=== PATIENT | male | born 1955 | race Caucasian/White ===

== ENCOUNTER 2016-11-25 16:04 | Inpatient (IN) | payer OTHER ==
--- NOTE | 2016-11-25 17:20 | ED Physician Documentation ---
PD HPI MALE - Stated complaint Stated Complaint: MALE - Chief complaint Chief Complaint: General - History obtained from History obtained from: Patient - History of Present Illness Timing - onset: How many weeks ago (3) Timing - duration: Weeks (3) Timing - details: Gradual onset, Still present, Waxing and waning (he had been feeling dehydrated but drinking extra fluids. Has noted poor appetite but has had 15 lb weight gain in the past month. Having leg cramps both thighs often, when he has been standing out for awhile. 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 Has been off the ship for 3 days now and is still feeling generally ill and weak, cramping, and thirsty.) Associated symptoms: Urinary frequency. No: Dysuria, Hematuria, Scrotal swelling, Abdominal pain PD HPI MALE CONTRIB FACTORS: Not sexually active Similar symptoms before: Has not had sx before Recently seen: Not recently seen Review of Systems Constitutional: reports: Myalgias, Fatigue. denies: Fever, Chills, Weight Loss Nose: denies: Rhinorrhea / runny nose, Congestion Throat: denies: Sore throat Cardiac: denies: Chest pain / pressure Respiratory: denies: Cough GI: reports: Nausea. denies: Abdominal Pain, Vomiting, Diarrhea : reports: Frequency. denies: Dysuria, Discharge Skin: denies: Rash, Lesions Musculoskeletal: reports: Extremity pain Neurologic: reports: Generalized weakness. denies: Focal weakness, Numbness, Headache Psychiatric: denies: Insomnia Endocrine: reports: Weight gain. denies: Weight loss PD PAST MEDICAL HISTORY - Past Medical History Past Medical History: Yes Cardiovascular: Hypertension Respiratory: Asthma Other Past Medical History: chronic proteinuria - Past Surgical History Past Surgical History: No - Present Medications Home Medications: Ambulatory Orders Medication Instructions Recorded Confirmed Albuterol 1 puffs PO PRN 11/25/16 Esomeprazole Magnesium [Nexium] 10 mg PO DAILY 11/25/16 11/25/16 Fluticasone 44 Mcg [Flovent] 1 spray PO DAILY 11/25/16 11/25/16 - Allergies Allergies/Adverse Reactions: Allergies Allergy/AdvReac Type Severity Reaction Status Date / Time No Known Drug Allergies Allergy Verified 11/25/16 16:13 - Social History Does the pt smoke?: No Smoking Status: Never smoker Does the pt drink ETOH?: No Does the pt have substance abuse?: No - Family History Family history: reports: DM PD ED PE NORMAL - Vitals Vital signs reviewed: Yes - General General: Alert and oriented X 3, No acute distress, Well developed/nourished - HEENT HEENT: PERRL, Pharynx benign - Neck Neck: Supple, no meningeal sign, No adenopathy - Cardiac Cardiac: RRR, No murmur - Respiratory Respiratory: Clear bilaterally - Abdomen Abdomen: Normal bowel sounds, Soft, Non tender, Non distended - Male Male : Other (no hernias, testicular pain nor swelling, nor genital sores/ rash. ) - Rectal Rectal: Deferred - Back Back: No CVA TTP - Derm Derm: Normal color, Warm and dry, No rash - Extremities Extremities: Other (tenderness in muscles anterior thigh and upper shins. No calf tenderness nor swelling. Normal pulses, color and cap refill in feet. ) Results - Vitals Vitals: Vital Signs - 24 hr 11/25/16 11/25/16 11/25/16 16:09 18:22 19:15 Temperature 36.6 C 36.5 C Heart Rate 99 86 93 Respiratory 20 16 18 Rate Blood Pressure 143/91 H 142/92 H 148/90 H O2 Saturation 95 96 95 Oxygen O2 Source Room air - Labs Labs: Laboratory Tests 11/25/16 11/25/16 11/25/16 17:00 18:03 18:08 WBC 7.8 RBC 5.06 Hgb 14.2 Hct 42.9 MCV 84.8 MCH 28.0 MCHC 33.1 RDW 12.9 Plt Count 222 MPV 9.7 Neut # 5.0 Lymph # 1.9 [place] # 0.6 Eos # 0.2 Baso # 0.0 Absolute Nucleated RBC 0.00 Nucleated RBCs 0.0 Sodium Potassium Chloride Carbon Dioxide Anion Gap BUN Creatinine Estimated GFR (MDRD) Glucose Glycated Hemoglobin 12.4 H Estim Average Glucose 309 H Calcium Phosphorus Magnesium Total Bilirubin AST ALT Alkaline Phosphatase Total Creatine Kinase Total Protein Albumin Globulin Albumin/Globulin Ratio Lipase TSH Urine Color YELLOW Urine Clarity CLEAR Urine pH 6.5 Ur Specific [place] 1.015 Urine Protein 100 H Urine Glucose (UA) >=1000 H Urine Ketones 15 H Urine Occult Blood MODERATE H Urine Nitrite NEGATIVE Urine Bilirubin NEGATIVE Urine Urobilinogen 0.2 (NORMAL) Ur Leukocyte Esterase NEGATIVE Urine RBC 0-5 Urine WBC 0-3 Ur Squamous Epith Cells RARE Squamous Urine Bacteria Rare Ur Microscopic Review INDICATED Urine Culture Comments NOT INDICATED Ethyl Alcohol Serum Ketones 11/25/16 11/25/16 11/25/16 18:08 18:08 18:08 WBC RBC Hgb Hct MCV MCH MCHC RDW Plt Count MPV Neut # Lymph # [place] # Eos # Baso # Absolute Nucleated RBC Nucleated RBCs Sodium 129 L Potassium 4.2 Chloride 92 L Carbon Dioxide 29 Anion Gap 8.0 BUN 20 Creatinine 1.1 Estimated GFR (MDRD) 68 L Glucose 452 H Glycated Hemoglobin Estim Average Glucose Calcium 8.8 Phosphorus 3.8 Magnesium 1.9 Total Bilirubin 1.0 AST 98 H ALT 127 H Alkaline Phosphatase 81 Total Creatine Kinase 3306 H* Total Protein 6.8 Albumin 3.4 Globulin 3.4 Albumin/Globulin Ratio 1.0 Lipase 66 H TSH 2.32 Urine Color Urine Clarity Urine pH Ur Specific [place] Urine Protein Urine Glucose (UA) Urine Ketones Urine Occult Blood Urine Nitrite Urine Bilirubin Urine Urobilinogen Ur Leukocyte Esterase Urine RBC Urine WBC Ur Squamous Epith Cells Urine Bacteria Ur Microscopic Review Urine Culture Comments Ethyl Alcohol < 5.0 Serum Ketones NEGATIVE - Rads (name of study) chest Radiology: Prelim report reviewed (some changes in bases, atelectasis versus scarring or infiltrate. ) PD MEDICAL DECISION MAKING - ED course Complexity details: reviewed results (appears now onset diabetes, but no ketones and normal bicarb. Does nto appear DKA. However does have elevated CK so having some muscle breakdown. He is not on statins. 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 May have contributed to dehydrating. Will need to be in hospital for treatment. Given IV fluids here in ED. ), considered differential, d/w patient Departure - Departure Disposition: 66 [facility] DC/Xfer Clinical Impression: Diabetes mellitus, new onset, Hyponatremia Rhabdomyolysis Qualifiers: Rhabdomyolysis type: non-traumatic Qualified Code(s): M62.82 - Rhabdomyolysis Condition: Stable Record reviewed to determine appropriate education?: Yes Discharge Date/Time: 11/25/16 20:10
[2016-11-25 18:03] LABS: BILIRUBIN,URINE NEGATIVE (NEGATIVE); PH,URINE 6.5 PH (5.0-7.5)
[2016-11-25 18:07] LABS: UA w/ MICROSCOPIC CHARGE YES
[2016-11-25 18:14] LABS: BASOPHILS % (AUTO) 0.6 %; EOSINOPHILS # (AUTO) 0.2 10^3/uL (0.0-0.7); EOSINOPHILS % (AUTO) 2.5 %; HCT - HEMATOCRIT 42.9 % (42.0-52.0); HGB - HEMOGLOBIN 14.2 g/dL (14.0-18.0); LYMPHOCYTES # (AUTO) 1.9 10^3/uL (1.5-3.5); LYMPHOCYTES % (AUTO) 24.8 %; MEAN CORPUSCULAR HGB CONC 33.1 g/dL (32.0-36.0); MEAN CORPUSCULAR VOLUME 84.8 fL (80.0-94.0); MEAN PLATELET VOLUME 9.7 fL (7.4-11.4); MONOCYTES # (AUTO) 0.6 10^3/uL (0.0-1.0); MONOCYTES % (AUTO) 7.8 %; NEUTROPHILS % (AUTO) 64.3 %; RED BLOOD COUNT 5.06 10^6/uL (4.70-6.10); RED CELL DISTRIBUTION WIDTH 12.9 % (12.0-15.0); UNCORRECTED WHITE BLOOD COUNT 7.8 x10^3/uL; WHITE BLOOD COUNT 7.8 x10^3/uL (4.8-10.8)
[2016-11-25 18:15] LABS: UR CULTURE IF IND NOT INDICATED; WBC,URINE 0-3 /HPF (0-3)
--- NOTE | 2016-11-25 18:40 | XRAY Preliminary Report ---
Exam: XR Chest 2 View PA/LAT IMPRESSION: Mild left base probable lingular linear opacities, could represent atelectasis, mild pneu monia or scarring. [facility] SITE ID: [id number]
--- NOTE | 2016-11-25 18:42 | XRAY Report ---
EXAM: CHEST RADIOGRAPHY EXAM DATE: 11/25/2016 05:57 PM. CLINICAL HISTORY: Congestion and muscle aches. COMPARISON: None. TECHNIQUE: 2 views. FINDINGS: Lungs/Pleura: Mild left base probable lingular linear opacities, could represent atelectasis, mild pn eumonia or scarring. Minimal left upper lobe linear opacity, could be scarring or atelectasis. No ple ural effusion or pneumothorax. Mediastinum: Heart and mediastinal contours are unremarkable. IMPRESSION: Mild left base probable lingular linear opacities, could represent atelectasis, mild pneu monia or scarring. [facility] Referring Provider Line: [phone] SITE ID: [id number]
[2016-11-25 18:45] LABS: BUN - BLOOD UREA NITROGEN 20 mg/dL (6-20); CALCIUM 8.8 mg/dL (8.5-10.3); CARBON DIOXIDE - CO2 29 mmol/L (21-32); CHLORIDE 92 mmol/L (101-111); CREATININE 1.1 mg/dL (0.6-1.2); GFR - MDRD 68 (>89); GLUCOSE 452 mg/dL (70-100); LIPASE 66 U/L (22-51); POTASSIUM 4.2 mmol/L (3.5-5.0); SODIUM 129 mmol/L (135-145); TOTAL PROTEIN 6.8 g/dL (6.7-8.2)
[2016-11-25 18:46] LABS: MAGNESIUM 1.9 mg/dL (1.7-2.8)
[2016-11-25] MEDS ORDERED: SODIUM CHLORIDE 0.9% 1,000 ML IV ONE ×2 (19:02→19:30)
[2016-11-25] MEDS: SODIUM CHLORIDE 0.9% 1,000 ML IV ONE ×2 (19:31)
[2016-11-25] MEDS ORDERED: SODIUM CHLORIDE FLUSH 0.9% 10 ML SYRINGE IVP PRN ×2 (19:44→20:15)
[2016-11-25] MEDS ORDERED: ONDANSETRON ODT 4 MG TABLET TL PRN ×2 (19:44→20:15)
[2016-11-25] MEDS ORDERED: ACETAMINOPHEN 325 MG TABLET PO PRN ×2 (19:44→20:15)
[2016-11-25] MEDS ORDERED: SODIUM CHLORIDE 0.9% 1,000 ML IV SCH (20:00)
[2016-11-25 20:07] LABS: PHOSPHORUS 3.8 mg/dL (2.5-4.6)
[2016-11-25 20:14] LABS: HEMOGLOBIN A1C 1.65 g/dL
[2016-11-25] MEDS: SODIUM CHLORIDE 0.9% 1,000 ML IV SCH (20:41)
[2016-11-25] MEDS ORDERED: INSULIN GLARGINE 300 UNIT/3 ML PEN SUBQ SCH ×2 (21:00)
[2016-11-25] MEDS ORDERED: INSULIN ASPART 300 UNIT/3 ML PEN SUBQ SCH ×2 (21:00)
[2016-11-25] MEDS: SODIUM CHLORIDE FLUSH 0.9% 10 ML SYRINGE IVP SCH (21:01)
[2016-11-25] MEDS ORDERED: SODIUM CHLORIDE FLUSH 0.9% 10 ML SYRINGE IVP SCH (22:00)
[2016-11-26] MEDS: SODIUM CHLORIDE 0.9% 1,000 ML IV SCH ×4 (03:00→22:55)
[2016-11-26] MEDS: SODIUM CHLORIDE FLUSH 0.9% 10 ML SYRINGE IVP SCH ×3 (05:35→21:05)
[2016-11-26] MEDS ORDERED: FLUTICASONE HFA 44 MCG INHALER INH SCH ×2 (07:00)
[2016-11-26] MEDS: BUDESONIDE 0.5 MG/2 ML NEB INH SCH ×2 (08:24→18:12)
[2016-11-26] MEDS: INSULIN ASPART 300 UNIT/3 ML PEN SUBQ SCH ×4 (08:25→20:59)
[2016-11-26] MEDS: PANTOPRAZOLE 40 MG TABLET PO SCH (08:35)
[2016-11-26] MEDS: POLYETHYLENE GLYCOL 3350 17 GM PACKET PO SCH (08:35)
[2016-11-26] MEDS: ENOXAPARIN 40 MG/0.4 ML SYRINGE SUBQ SCH (08:35)
[2016-11-26] MEDS ORDERED: ENOXAPARIN 40 MG/0.4 ML SYRINGE SUBQ SCH (09:00)
[2016-11-26] MEDS ORDERED: ESOMEPRAZOLE MAGNESIUM 10 MG PO SCH (09:00)
[2016-11-26] MEDS ORDERED: INSULIN ASPART 300 UNIT/3 ML PEN SUBQ SCH (09:00)
[2016-11-26] MEDS ORDERED: POLYETHYLENE GLYCOL 3350 17 GM PACKET PO SCH (09:00)
--- NOTE | 2016-11-26 11:29 | HISTORY & PHYSICAL EXAMINATION ---
DATE OF ADMISSION: 11/25/2016 PRIMARY CARE PROVIDER: Cobalt Nghia Amos. CHIEF COMPLAINT: Feeling thirsty and bilateral leg pain. 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 Please note that the patient is somewhat of a poor historian and goes off on diffe rent directions. He returned yesterday and was not feeling quite himself, was feeling a little bit we kiara, feeling very thirsty, and presented to the emergency room today. He was found to have a CPK tot al of 3,306, was also found to have a sodium of 129 with a glucose of 452, calculated GFR was 68, BUN 20, creatinine 1.1. The patient does do a lot of heavy work on the boat and had been out in the sun. He notes that within the past year he has had a physical and was not diagnosed with diabetes. His bi carb is normal at 29. Serum ketones are negative. PAST MEDICAL HISTORY: Significant for asthma, hypertension, GERD. MEDICATIONS UPON ADMISSION: 1. Albuterol 1 puff p.o. p.r.n. 2. Nexium 10 mg p.o. daily. 3. Flovent 44 mcg 1 spray p.o. daily. ALLERGIES: NO KNOWN DRUG ALLERGIES. SOCIAL HISTORY: Lives in [place]. Smoking none, alcohol none. FAMILY MEDICAL HISTORY: Mother with a history of diabetes type 2. REVIEW OF SYSTEMS: Denies any fevers or chills. Denies any chest pain. Denies any shortness of breath . All other review of systems are reviewed and are negative except for as in HPI. Of note patient batista s have some chronic lower extremity swelling. PHYSICAL EXAMINATION: VITAL SIGNS: Temperature is afebrile, heart rate 93, blood pressure 148/90, respiratory rate 18, room air saturation 95%. CONSTITUTIONAL: Middle aged male in no acute distress. HEENT: Head normocephalic, atraumatic. EYES: PERR, LADC, EOMI. MOUTH: No lesions. NECK: No adenopathy. Carotids 2+/4 without bruits. CHEST: Clear to auscultation. COR: Regular rate and rhythm. S1, S2 without murmur. ABDOMEN: Soft, nontender, bowel sounds present. EXTREMITIES: Extremity exam reveals trace to 1+ lower extremity edema with chronic venous stasis derm atitis noted. SKIN: Reveals no rashes except as noted above. PSYCH: Mood and affect are appropriate. NEURO: Alert and oriented x3, motor strength is intact bilaterally. LABS: As above, also to include sodium 129, potassium 4.2, chloride 92, bicarb 29, BUN 20, creatinine 1.1, calculated GFR 68, glucose 452, calcium 8.8, magnesium 1.9, total bilirubin 1.0, AST 98, ALT 12 7. Alkaline phosphatase 81. CK 3,306, total protein 6.8, albumin 3.4. Lipase 66, TSH 2.32. White coun t 7.8, hemoglobin 14.2, hematocrit 42.9, MCV 84.8, platelets 222 with 5.0 neutrophils. Urine shows pH 6.5, specific gravity 1.015. Urine protein 100, glucose greater than 1000, ketones 15, moderate occult blood. Nitrite negative. Bilirubin negative. Urobilinogen normal. Leukocyte esterase negative. Urine RBC's 0-5, WBC's 0-3, rare squamous epithelial cells, rare bacteria. Troponin is pen ding. Urine drug screen and blood alcohol level are pending at the time of this dictation. EKG is ordered and pending at the time of this dictation. ASSESSMENT AND PLAN: 1. Rhabdomyolysis, acute, present on admission. Will go ahead and give IV fluids. Will also check a p hosphorus level to make sure that is normal, if low will replete. Check troponin's, check CPK in the a.m. Run IV fluids, normal saline 150 mL per hour, most likely due from heavy physical work that he h as been doing on the [employer]. 2. Hyperglycemia, acute, present on admission. Will go ahead and place him on subcutaneous insulin pr otocol and also give him 10 units of Lantus this evening and monitor q.i.d. blood sugars. Get hemoglo bin A1c. 3. Borderline elevated liver function tests, acute, present on admission. Will go ahead and recheck i n a.m. 4. Asthma, chronic, present on admission. Has been stable. Continue his home medication regimen. 5. History of hypertension, present on admission. Will go ahead and monitor blood pressure. I do not see that he takes any antihypertensives at home. 6. Deep venous thrombosis prophylaxis. Will place on subcutaneous Lovenox. 7. CODE STATUS: THE PATIENT IS FULL CODE. TIME SPENT: 60 Minutes. JOB #: [id number] EXT JOB #:[id number]
[2016-11-26] MEDS: TAMSULOSIN 0.4 MG CAPSULE PO SCH (12:24)
[2016-11-26] MEDS: amLODIPine 5 MG TABLET PO SCH (12:24)
--- NOTE | 2016-11-26 15:31 | PROVIDER PROGRESS NOTE ---
Subjective - Prog Note Date Prog Note Date: 11/26/16 Prog Note Time: 15:28 - Subjective Subjective: he feel better, express concern about the things of his off work Objective - Vital Signs/Intake & Output Vital Signs: Vital Signs x48h Temp Pulse Pulse Resp BP Pulse Ox 11/26/16 12:07 36.8 C 81 16 152/88 H 95 11/26/16 08:52 36.5 C 86 18 145/97 H 100 11/26/16 08:48 37.0 C 83 16 123/74 97 11/26/16 08:25 87 16 Intake & Output: Intake & Output 11/23/16 11/24/16 11/25/16 11/26/16 23:59 23:59 23:59 23:59 Intake Total 1500 3492 Output Total 200 200 Balance 1300 3292 - Objective General Appearance: positive: No acute distress, Alert. negative: Mild distress , Moderate distress, Severe distress, Anxious, Lethargic, Other Eyes Bilateral: positive: Normal inspection, PERRL. negative: EOMI, No lid inflammation, Conjunctivae nml, No scleral icterus, Other ENT: positive: ENT inspection nml, Pharynx nml. negative: No signs of dehydration, Purulent nasal drainage, Pharyngeal erythema, Oral lesions, Dry mucous membranes, Other Neck: positive: Nml inspection, Trachea midline. negative: Thyroid nml, No JVD , Thyromegaly, Lymphadenopathy (R), Lymphadenopathy (L), Stiff neck, Kernig's sign, Brudzinski's sign, Carotid bruit, Swelling/bruising, Tracheal deviation, Other Respiratory: positive: Chest non-tender, No respiratory distress, Breath sounds nml. negative: Wheezes, Rales, Rhonchi, Other Cardiovascular: positive: Regular rate & rhythm, No murmur, No gallop. negative : Irregularly irregular, Extrasystoles, Tachycardia, Bradycardia, PMI displaced laterally, JVD present, Systolic murmur, Diastolic murmur, Gallop/S3, Gallop/S4 , Friction rub, Decreased pulse(s), Crepitus, Other Peripheral Pulses: 2+ Radial (R), 2+ Radial (L), 2+ Dorsalis pedis (R), 2+ Dorsalis pedis (L) Abdomen: positive: Non-tender, Nml bowel sounds, No distention. negative: No organomegaly, Tenderness, Guarding, Rebound, Hepatomegaly, Splenomegaly, Mass, Abnml bowel sounds, Bruit, Other Back: positive: Nml inspection. negative: CVA tenderness (R), CVA tenderness (L ), Other Skin: positive: Color nml, Warm. negative: No rash, Dry, Cyanosis, Diaphoresis , Pallor, Skin rash, Decubitus, Laceration (cm), Puncture wound, Embolic lesions , Other Extremities: positive: Non-tender, Full ROM, Nml appearance. negative: No pedal edema, Pedal edema, Calf tenderness, Joint swelling, Lala's sign/cords, Other Neurologic/Psychiatric: positive: Oriented x3, CN's nml (2-12), Motor nml, Sensation nml. negative: Mood/affect nml, Disoriented to person, Disoriented to place, Disoriented to time, Weakness, Sensory loss, Facial droop, Slurred/ abnml speech, Depressed mood/affect, Other - Lab Results Fish [place]ones: 11/25/16 18:08 11/25/16 18:08 Other Labs: Lab Results x24hrs 11/26/16 11/26/16 11/25/16 Range/Units 11:15 07:50 21:09 POC Whole Bld Glucose 299 H 365 H 349 H (70 - 100) mg/dL Troponin I (<0.49) ng/mL Urine Opiates Screen (NEGATIVE) Ur Oxycodone Screen (NEGATIVE) Urine Methadone Screen (NEGATIVE) Ur Propoxyphene Screen (NEGATIVE) Ur Barbiturates Screen (NEGATIVE) Ur Tricyclics Screen (NEGATIVE) Ur Phencyclidine Scrn (NEGATIVE) Ur Amphetamine Screen (NEGATIVE) U Methamphetamines Scrn (NEGATIVE) U Benzodiazepines Scrn (NEGATIVE) Urine Cocaine Screen (NEGATIVE) U Cannabinoids Screen (NEGATIVE) 11/25/16 11/25/16 Range/Units 20:40 19:52 POC Whole Bld Glucose (70 - 100) mg/dL Troponin I < 0.04 (<0.49) ng/mL Urine Opiates Screen NEGATIVE (NEGATIVE) Ur Oxycodone Screen NEGATIVE (NEGATIVE) Urine Methadone Screen NEGATIVE (NEGATIVE) Ur Propoxyphene Screen NEGATIVE (NEGATIVE) Ur Barbiturates Screen NEGATIVE (NEGATIVE) Ur Tricyclics Screen NEGATIVE (NEGATIVE) Ur Phencyclidine Scrn NEGATIVE (NEGATIVE) Ur Amphetamine Screen NEGATIVE (NEGATIVE) U Methamphetamines Scrn NEGATIVE (NEGATIVE) U Benzodiazepines Scrn NEGATIVE (NEGATIVE) Urine Cocaine Screen NEGATIVE (NEGATIVE) U Cannabinoids Screen NEGATIVE (NEGATIVE) Assessment/Plan - Problem List (1) Rhabdomyolysis Impression: continue NS 150cc/h, recheck and closely monitor renal function, urinal amount, recheck total CK Qualifiers: Rhabdomyolysis type: non-traumatic Qualified Code(s): M62.82 - Rhabdomyolysis (2) Diabetes mellitus, new onset Impression: pt report he did not know he had DM2. Pt may have DM2 for quite time, his A1C12.4. after 10 unit lantus last night, pt's glucose is still over 300. switch to 15 unit and high scale for Aspart. [facility] closely monitor. HTN: reconciliation of home BP meds Norvasc.
[2016-11-26] MEDS ORDERED: INSULIN GLARGINE 300 UNIT/3 ML PEN SUBQ SCH ×2 (21:00)
[2016-11-27 05:20] LABS: BASOPHILS % (AUTO) 0.5 %; EOSINOPHILS # (AUTO) 0.2 10^3/uL (0.0-0.7); EOSINOPHILS % (AUTO) 3.5 %; HCT - HEMATOCRIT 38.9 % (42.0-52.0); HGB - HEMOGLOBIN 12.7 g/dL (14.0-18.0); LYMPHOCYTES # (AUTO) 1.6 10^3/uL (1.5-3.5); LYMPHOCYTES % (AUTO) 24.7 %; MEAN CORPUSCULAR HGB CONC 32.7 g/dL (32.0-36.0); MEAN CORPUSCULAR VOLUME 85.6 fL (80.0-94.0); MEAN PLATELET VOLUME 9.4 fL (7.4-11.4); MONOCYTES # (AUTO) 0.5 10^3/uL (0.0-1.0); MONOCYTES % (AUTO) 7.8 %; NEUTROPHILS # (AUTO) 4.2 10^3/uL (1.5-6.6); NEUTROPHILS % (AUTO) 63.5 %; NUCLEATED RED BLOOD CELLS AUTO 0.1 /100WBC; RED BLOOD COUNT 4.54 10^6/uL (4.70-6.10); RED CELL DISTRIBUTION WIDTH 12.8 % (12.0-15.0); UNCORRECTED WHITE BLOOD COUNT 6.7 x10^3/uL; WHITE BLOOD COUNT 6.7 x10^3/uL (4.8-10.8)
[2016-11-27 05:34] LABS: ALBUMIN/GLOBULIN RATIO 0.9 (1.0-2.2); BILIRUBIN,TOTAL 0.8 mg/dL (0.2-1.0); CALCIUM 8.2 mg/dL (8.5-10.3); CREATININE 0.7 mg/dL (0.6-1.2); POTASSIUM 4.1 mmol/L (3.5-5.0); TOTAL PROTEIN 5.5 g/dL (6.7-8.2)
[2016-11-27] MEDS: SODIUM CHLORIDE 0.9% 1,000 ML IV SCH ×3 (05:47→20:38)
[2016-11-27] MEDS: PANTOPRAZOLE 40 MG TABLET PO SCH (06:28)
[2016-11-27] MEDS: SODIUM CHLORIDE FLUSH 0.9% 10 ML SYRINGE IVP SCH ×3 (06:29→22:04)
[2016-11-27] MEDS: POLYETHYLENE GLYCOL 3350 17 GM PACKET PO SCH (08:52)
[2016-11-27] MEDS: INSULIN ASPART 300 UNIT/3 ML PEN SUBQ SCH ×4 (08:52→20:27)
[2016-11-27] MEDS: TAMSULOSIN 0.4 MG CAPSULE PO SCH (08:55)
[2016-11-27] MEDS: amLODIPine 5 MG TABLET PO SCH (08:55)
[2016-11-27] MEDS: ENOXAPARIN 40 MG/0.4 ML SYRINGE SUBQ SCH (08:55)
[2016-11-27] MEDS: BUDESONIDE 0.5 MG/2 ML NEB INH SCH ×2 (09:00→19:10)
--- NOTE | 2016-11-27 15:36 | PROVIDER PROGRESS NOTE ---
Subjective - Prog Note Date Prog Note Date: 11/27/16 - Subjective Pt reports feeling: Improved Subjective: pt report he feels better, no other complaints Objective - Vital Signs/Intake & Output Vital Signs: Vital Signs x48h Temp Pulse Pulse Resp BP Pulse Ox 11/27/16 11:14 36.3 C L 78 12 147/87 H 97 11/27/16 09:00 76 12 Intake & Output: Intake & Output 11/24/16 11/25/16 11/26/16 11/27/16 23:59 23:59 23:59 23:59 Intake Total 1500 3732 2736 Output Total 200 400 450 Balance 1300 3332 2286 - Objective General Appearance: positive: No acute distress, Alert. negative: Mild distress , Moderate distress, Severe distress, Anxious, Lethargic, Other Eyes Bilateral: positive: Normal inspection, PERRL. negative: EOMI, No lid inflammation, Conjunctivae nml, No scleral icterus, Other ENT: positive: ENT inspection nml, No signs of dehydration. negative: Pharynx nml, Purulent nasal drainage, Pharyngeal erythema, Oral lesions, Dry mucous membranes, Other Neck: positive: Nml inspection, Trachea midline, Thyromegaly. negative: Thyroid nml, No JVD, Lymphadenopathy (R), Lymphadenopathy (L), Stiff neck, Kernig's sign, Brudzinski's sign, Carotid bruit, Swelling/bruising, Tracheal deviation, Other Respiratory: positive: Chest non-tender, No respiratory distress, Breath sounds nml. negative: Wheezes, Rales, Rhonchi, Other Cardiovascular: positive: Regular rate & rhythm, No murmur, No gallop. negative : Irregularly irregular, Extrasystoles, Tachycardia, Bradycardia, PMI displaced laterally, JVD present, Systolic murmur, Diastolic murmur, Gallop/S3, Gallop/S4 , Friction rub, Decreased pulse(s), Crepitus, Other Peripheral Pulses: 2+ Radial (R), 2+ Radial (L), 2+ Dorsalis pedis (R), 2+ Dorsalis pedis (L) Abdomen: positive: Non-tender, Nml bowel sounds, No distention. negative: No organomegaly, Tenderness, Guarding, Rebound, Hepatomegaly, Splenomegaly, Mass, Abnml bowel sounds, Bruit, Other Back: positive: Nml inspection. negative: CVA tenderness (R), CVA tenderness (L ), Other Skin: positive: Color nml, Warm, Dry. negative: No rash, Cyanosis, Diaphoresis , Pallor, Skin rash, Decubitus, Laceration (cm), Puncture wound, Embolic lesions , Other Extremities: positive: Non-tender, Full ROM, Nml appearance. negative: No pedal edema, Pedal edema, Calf tenderness, Joint swelling, Lala's sign/cords, Other Neurologic/Psychiatric: positive: Oriented x3, CN's nml (2-12), Motor nml, Sensation nml, Mood/affect nml. negative: Disoriented to person, Disoriented to place, Disoriented to time, Weakness, Sensory loss, Facial droop, Slurred/ abnml speech, Depressed mood/affect, Other - Lab Results Fish [place]ones: 11/27/16 05:05 11/27/16 05:05 Other Labs: Lab Results x24hrs 11/27/16 11/27/16 11/27/16 Range/Units 11:03 09:02 07:26 WBC (4.8-10.8) x10^3/uL RBC (4.70-6.10) 10^6/uL Hgb (14.0-18.0) g/dL Hct (42.0-52.0) % MCV (80.0-94.0) fL MCH (27.0-31.0) pg MCHC (32.0-36.0) g/dL RDW (12.0-15.0) % Plt Count (130-450) 10^3/uL MPV (7.4-11.4) fL Neut # (1.5-6.6) 10^3/uL Lymph # (1.5-3.5) 10^3/uL [place] # (0.0-1.0) 10^3/uL Eos # (0.0-0.7) 10^3/uL Baso # (0.0-0.1) 10^3/uL Absolute Nucleated RBC x10^3/uL Nucleated RBCs /100WBC Sodium (135-145) mmol/L Potassium (3.5-5.0) mmol/L Chloride (101-111) mmol/L Carbon Dioxide (21-32) mmol/L Anion Gap (6-13) BUN (6-20) mg/dL Creatinine (0.6-1.2) mg/dL Estimated GFR (MDRD) (>89) Glucose (70-100) mg/dL POC Whole Bld Glucose 311 H 237 H (70 - 100) mg/dL Calcium (8.5-10.3) mg/dL Total Bilirubin (0.2-1.0) mg/dL AST (10-42) IU/L ALT (10-60) IU/L Alkaline Phosphatase (42-121) IU/L Total Creatine Kinase 1422 H* (22-269) IU/L Total Protein (6.7-8.2) g/dL Albumin (3.2-5.5) g/dL Globulin (2.1-4.2) g/dL Albumin/Globulin Ratio (1.0-2.2) 11/27/16 11/27/16 11/26/16 Range/Units 05:05 05:05 19:56 WBC 6.7 (4.8-10.8) x10^3/uL RBC 4.54 L (4.70-6.10) 10^6/uL Hgb 12.7 L (14.0-18.0) g/dL Hct 38.9 L (42.0-52.0) % MCV 85.6 (80.0-94.0) fL MCH 28.0 (27.0-31.0) pg MCHC 32.7 (32.0-36.0) g/dL RDW 12.8 (12.0-15.0) % Plt Count 178 (130-450) 10^3/uL MPV 9.4 (7.4-11.4) fL Neut # 4.2 (1.5-6.6) 10^3/uL Lymph # 1.6 (1.5-3.5) 10^3/uL [place] # 0.5 (0.0-1.0) 10^3/uL Eos # 0.2 (0.0-0.7) 10^3/uL Baso # 0.0 (0.0-0.1) 10^3/uL Absolute Nucleated RBC 0.01 x10^3/uL Nucleated RBCs 0.1 /100WBC Sodium 136 (135-145) mmol/L Potassium 4.1 (3.5-5.0) mmol/L Chloride 106 (101-111) mmol/L Carbon Dioxide 24 (21-32) mmol/L Anion Gap 6.0 (6-13) BUN 11 (6-20) mg/dL Creatinine 0.7 (0.6-1.2) mg/dL Estimated GFR (MDRD) 115 (>89) Glucose 242 H (70-100) mg/dL POC Whole Bld Glucose 234 H (70 - 100) mg/dL Calcium 8.2 L (8.5-10.3) mg/dL Total Bilirubin 0.8 (0.2-1.0) mg/dL AST 47 H (10-42) IU/L ALT 83 H (10-60) IU/L Alkaline Phosphatase 61 (42-121) IU/L Total Creatine Kinase (22-269) IU/L Total Protein 5.5 L (6.7-8.2) g/dL Albumin 2.6 L (3.2-5.5) g/dL Globulin 2.9 (2.1-4.2) g/dL Albumin/Globulin Ratio 0.9 L (1.0-2.2) 11/26/16 Range/Units 16:41 WBC (4.8-10.8) x10^3/uL RBC (4.70-6.10) 10^6/uL Hgb (14.0-18.0) g/dL Hct (42.0-52.0) % MCV (80.0-94.0) fL MCH (27.0-31.0) pg MCHC (32.0-36.0) g/dL RDW (12.0-15.0) % Plt Count (130-450) 10^3/uL MPV (7.4-11.4) fL Neut # (1.5-6.6) 10^3/uL Lymph # (1.5-3.5) 10^3/uL [place] # (0.0-1.0) 10^3/uL Eos # (0.0-0.7) 10^3/uL Baso # (0.0-0.1) 10^3/uL Absolute Nucleated RBC x10^3/uL Nucleated RBCs /100WBC Sodium (135-145) mmol/L Potassium (3.5-5.0) mmol/L Chloride (101-111) mmol/L Carbon Dioxide (21-32) mmol/L Anion Gap (6-13) BUN (6-20) mg/dL Creatinine (0.6-1.2) mg/dL Estimated GFR (MDRD) (>89) Glucose (70-100) mg/dL POC Whole Bld Glucose 297 H (70 - 100) mg/dL Calcium (8.5-10.3) mg/dL Total Bilirubin (0.2-1.0) mg/dL AST (10-42) IU/L ALT (10-60) IU/L Alkaline Phosphatase (42-121) IU/L Total Creatine Kinase (22-269) IU/L Total Protein (6.7-8.2) g/dL Albumin (3.2-5.5) g/dL Globulin (2.1-4.2) g/dL Albumin/Globulin Ratio (1.0-2.2) Assessment/Plan - Problem List (1) Rhabdomyolysis Impression: Pt's vital stable, Lab test reviewed. continue NS 150 cc/h, recheck CK, renal functions. Today CK down to around 1400 increase Lantus to 20 QPAC, since pt's glucose is still over 240 Qualifiers: Rhabdomyolysis type: non-traumatic Qualified Code(s): M62.82 - Rhabdomyolysis
[2016-11-27] MEDS ORDERED: INSULIN GLARGINE 300 UNIT/3 ML PEN SUBQ SCH ×2 (21:00)
[2016-11-28] MEDS: SODIUM CHLORIDE 0.9% 1,000 ML IV SCH ×2 (03:45→10:35)
[2016-11-28 05:16] LABS: BASOPHILS % (AUTO) 0.3 %; EOSINOPHILS # (AUTO) 0.3 10^3/uL (0.0-0.7); EOSINOPHILS % (AUTO) 4.5 %; HCT - HEMATOCRIT 39.2 % (42.0-52.0); HGB - HEMOGLOBIN 13.2 g/dL (14.0-18.0); LYMPHOCYTES # (AUTO) 1.7 10^3/uL (1.5-3.5); LYMPHOCYTES % (AUTO) 30.3 %; MEAN CORPUSCULAR HEMOGLOBIN 28.7 pg (27.0-31.0); MEAN CORPUSCULAR HGB CONC 33.7 g/dL (32.0-36.0); MEAN PLATELET VOLUME 9.7 fL (7.4-11.4); MONOCYTES # (AUTO) 0.6 10^3/uL (0.0-1.0); MONOCYTES % (AUTO) 10.7 %; NEUTROPHILS # (AUTO) 3.1 10^3/uL (1.5-6.6); NEUTROPHILS % (AUTO) 54.2 %; RED BLOOD COUNT 4.61 10^6/uL (4.70-6.10); RED CELL DISTRIBUTION WIDTH 12.9 % (12.0-15.0); UNCORRECTED WHITE BLOOD COUNT 5.8 x10^3/uL; WHITE BLOOD COUNT 5.8 x10^3/uL (4.8-10.8)
[2016-11-28 05:26] LABS: ALBUMIN/GLOBULIN RATIO 0.9 (1.0-2.2); BILIRUBIN,TOTAL 0.4 mg/dL (0.2-1.0); CALCIUM 8.8 mg/dL (8.5-10.3); CREATININE 0.5 mg/dL (0.6-1.2); POTASSIUM 4.1 mmol/L (3.5-5.0); TOTAL PROTEIN 5.8 g/dL (6.7-8.2)
[2016-11-28] MEDS: PANTOPRAZOLE 40 MG TABLET PO SCH (06:44)
[2016-11-28] MEDS: SODIUM CHLORIDE FLUSH 0.9% 10 ML SYRINGE IVP SCH (06:45)
[2016-11-28] MEDS: BUDESONIDE 0.5 MG/2 ML NEB INH SCH (07:30)
[2016-11-28] MEDS: INSULIN ASPART 300 UNIT/3 ML PEN SUBQ SCH ×2 (08:35→11:25)
[2016-11-28] MEDS: POLYETHYLENE GLYCOL 3350 17 GM PACKET PO SCH (08:36)
[2016-11-28] MEDS: ENOXAPARIN 40 MG/0.4 ML SYRINGE SUBQ SCH (08:36)
[2016-11-28] MEDS: TAMSULOSIN 0.4 MG CAPSULE PO SCH (08:36)
[2016-11-28] MEDS: amLODIPine 5 MG TABLET PO SCH (08:36)
[2016-11-28 11:20] VITALS: BP 146/83
--- NOTE | 2016-11-28 12:53 | Discharge Plan ---
Discharge Plan Disposition: Home, Self Care Condition: Stable Prescriptions: metFORMIN [Glucophage] 500 mg PO DAILY #20 tablet Insulin Glargine [Lantus Solostar] 15 unit SUBQ DAILY PM #3 pen Diet: Diabetic Activity Restrictions: No Restrictions Shower Restrictions: No Driving Restrictions: No Weight Bearing: Full Weight Additional Instructions or Follow Up instructions: may see PCP in one weeks If symptoms return or worsen, may call 911 or go to the nearest [facility]. Follow-Up Care: Dietitian No Smoking: If you smoke, Please STOP! Call for help. Follow-up with: Nic Gaytan MD [Physician No Access] -
--- NOTE | 2016-11-29 10:44 | DISCHARGE SUMMARY ---
DATE OF ADMISSION: 11/25/2016 DATE OF DISCHARGE: 11/28/2016 CHIEF COMPLAINT: Feeling thirsty and leg pain. DISCHARGE DIAGNOSES: 1. Hyperglycemia. 2. Rhabdomyolysis. MEDICATIONS ON DISCHARGE: 1. Flomax 0.4 mg p.o. daily. 2. Amlodipine 5 mg p.o. daily. 3. Flovent 220 mcg 1 puff INH daily p.r.n. 4. Nexium 20 mg p.o. daily. New prescriptions: 5. Metformin 100 mg p.o. daily in morning. 6. Insulin Lantus 15 units subcutaneous daily p.m. HOSPITAL COURSE: Please refer to Dr. Marisabel Avelar 11/25/2016 for H and P. The patient comes on 10/2016 with being thirsty and bilateral leg pain. The patient reported he had a heavy duty job and h e feels quite weak and real thirsty for a couple weeks. In the emergency room we tested patient's CPK total was 3,306. Also found his sodium 129, with glucose 452, BUN 20, creatinine 1.1, GFR 60 after c alculation. The patient's bicarb and serum is normal 29, serum ketones are negative. INTERVENTION: The patient given IV fluids 150 mL/hour. Also patient had A1c and given Lantus for the insulin at night and during daytime . The patient's CPK continued down to the point today 300 liters/300 from 3,300. The patient is discharged today and prescription medicine for his new diabeti c diagnosis, metformin and Lantus. PHYSICAL EXAMINATION: The patient's heart rate 93, blood pressure 148/90, temperature 36.5, respiration rate 12, O2 saturat ion 99% with room air. The patient in no distress. HEENT: Head normocephalic, atraumatic. Eyes: PERRL, EOMI. Mouth: No lesions. NECK: Carotids 2/4 without bruits. CHEST: Clear to auscultation. HEART: Sounds regular rate and rhythm, S1, S2, without murmur. ABDOMEN: Soft, nontender. Bowel sounds normal. EXTREMITIES: Extremities full range of motion. Strength 2+/2. SKIN: No rash. NEUROLOGIC: The patient is alert x3. Normal sensation, normal motor. Normal cranial nerves on exam. IMAGING STUDIES: Chest x-ray mild of left base, probable lingular opacities. Clinically the patient denies any fevers, chills, cough, not any pneumonia. FOLLOWUP: The patient will followup with PCP, Nic Trevino, in 1 week. For diabetes, patient new di agnosis, diabetic, the patient will have carb counting diet, activity as tolerated. TIME SPENT ON DISCHARGE: 50 minutes. JOB #: [id number] EXT JOB #:[id number]
== END 2016-11-28 14:43 | disposition home or self-care (01) | DRG 558 ==
LOC: ED 16:04 → MS 19:44 → ED 20:10
PROVIDERS: ADMIT Specialist; ATTEND Nurse Practitioner Gerontology
DX: M62.82 Rhabdomyolysis (principal); E87.1 Hypo-osmolality and hyponatremia; E11.65 Type 2 diabetes mellitus with hyperglycemia; I10 Essential (primary) hypertension; J45.909 Unspecified asthma, uncomplicated; K21.9 Gastro-esophageal reflux disease without esophagitis; Z83.3 Family history of diabetes mellitus
CPT/HCPCS: 36415; 71020; 80053; 80306; 80320; 81001; 81003; 82009; 82550; 83036; 83690; 83735; 84100; 84443; 84484; 85025; 87086; 93005; 94640; 96360; 96361; 99284

== ENCOUNTER 2016-12-24 10:48 | Emergency (ER) | payer OTHER ==
[2016-12-24] MEDS ORDERED: SODIUM CHLORIDE FLUSH 0.9% 10 ML SYRINGE IVP ONE (11:17)
[2016-12-24 11:42] LABS: BASOPHILS % (AUTO) 0.4 %; EOSINOPHILS # (AUTO) 0.1 10^3/uL (0.0-0.7); EOSINOPHILS % (AUTO) 2.4 %; HGB - HEMOGLOBIN 14.1 g/dL (14.0-18.0); LYMPHOCYTES # (AUTO) 1.3 10^3/uL (1.5-3.5); LYMPHOCYTES % (AUTO) 20.8 %; MEAN CORPUSCULAR HEMOGLOBIN 28.2 pg (27.0-31.0); MEAN CORPUSCULAR HGB CONC 33.6 g/dL (32.0-36.0); MEAN PLATELET VOLUME 9.2 fL (7.4-11.4); MONOCYTES # (AUTO) 0.7 10^3/uL (0.0-1.0); MONOCYTES % (AUTO) 10.8 %; NEUTROPHILS % (AUTO) 65.6 %; RED BLOOD COUNT 4.99 10^6/uL (4.70-6.10); RED CELL DISTRIBUTION WIDTH 13.7 % (12.0-15.0); UNCORRECTED WHITE BLOOD COUNT 6.2 x10^3/uL; WHITE BLOOD COUNT 6.2 x10^3/uL (4.8-10.8)
--- NOTE | 2016-12-24 11:46 | XRAY Preliminary Report ---
Exam: XR Chest 1 View IMPRESSION: Single view of the chest demonstrates no definite acute abnormality. [facility] SITE ID: [id number]
--- NOTE | 2016-12-24 11:48 | XRAY Report ---
EXAM: CHEST RADIOGRAPHY EXAM DATE: 12/24/2016 11:31 AM. CLINICAL HISTORY: Chest pain. COMPARISON: [facility] 11/25/2016. TECHNIQUE: 1 view. FINDINGS: Lungs/Pleura: No definite acute infiltrate or consolidation. Minimal left costophrenic angle linear a telectasis. No pleural effusion. No pneumothorax. Mediastinum: Within exam limitations, cardiomediastinal contour is normal. Other: None. IMPRESSION: Single view of the chest demonstrates no definite acute abnormality. [facility] Referring Provider Line: [phone] SITE ID: [id number]
[2016-12-24 11:57] LABS: ALBUMIN/GLOBULIN RATIO 1.2 (1.0-2.2); BILIRUBIN,TOTAL 0.9 mg/dL (0.2-1.0); CALCIUM 9.2 mg/dL (8.5-10.3); CREATININE 0.7 mg/dL (0.6-1.2); POTASSIUM 3.3 mmol/L (3.5-5.0)
[2016-12-24 13:25] VITALS: BP 123/73
--- NOTE | 2016-12-24 14:00 | ED Physician Documentation ---
History of Present Illness - Stated complaint Stated Complaint: CHEST PAIN - Chief complaint Chief Complaint: Cardiac - Additonal information Additional information: Patient is a pleasant 61-year-old man who does not have any history of known coronary artery disease. He was relatively healthy until he was diagnosed with type 2 diabetes. He is currently on metformin and another antidiabetic medication. Labs are drawn last week and 1 of the labs was a CK-MB. This came back elevated with MB fraction at 14.3 and he was directed to come into the emergency department. The patient was sent in by his primary care physician. The patient denies any chest pain or chest heaviness although with his diabetes there is a concern for a asymptomatic coronary syndrome. Patient says he feels great he has no history of any cardiac problems historically and has been losing weight, exercising regularly including walking a mile a day and has been very careful with his diet including adhering to a low carbohydrate diet. As directed is here to be evaluated. Review of systems: For pertinent positive and negatives in the review of systems please see the history of present illness, otherwise all other systems have been reviewed and are negative. Dragon disclaimer: Parts of this medical record were created using voice recognition technology. Because of the inherent limitations of this system, occasional same sounding word substitutions do occur and persist despite proofreading. Please read the document for context. Review of Systems Constitutional: denies: Fever, Myalgias Eyes: denies: Loss of vision Ears: denies: Loss of hearing Nose: denies: Rhinorrhea / runny nose, Foreign Body Throat: denies: Dental pain / toothache Cardiac: denies: Chest pain / pressure, Palpitations Respiratory: denies: Dyspnea, Cough GI: denies: Abdominal Pain, Abdominal Swelling, Nausea, Vomiting : denies: Dysuria, Frequency, Hesitancy, Unable to Void, Incontinent Musculoskeletal: denies: Neck pain, Back pain, Extremity pain Neurologic: denies: Generalized weakness, Focal weakness, Numbness PD PAST MEDICAL HISTORY - Past Medical History Cardiovascular: Hypertension Respiratory: Asthma Neuro: None Endocrine/Autoimmune: Type 2 diabetes GI: None : None, Other HEENT: None Psych: None Musculoskeletal: None Derm: None Other Past Medical History: "possibly kidney disease" - Past Surgical History Past Surgical History: No - Present Medications Home Medications: Ambulatory Orders Medication Instructions Recorded Confirmed Esomeprazole Magnesium [Nexium] 20 mg PO DAILY 11/26/16 12/24/16 Fluticasone 220 Mcg [Flovent] 1 puffs INH DAILY PRN 11/26/16 12/24/16 Tamsulosin [Flomax] 0.4 mg PO DAILY 11/26/16 12/24/16 amLODIPine [Norvasc] 5 mg PO DAILY 11/26/16 12/24/16 Insulin Glargine [Lantus Solostar] 15 unit SUBQ DAILY PM #3 pen 11/28/16 metFORMIN [Glucophage] 500 mg PO DAILY #20 tablet 11/28/16 12/24/16 - Allergies Allergies/Adverse Reactions: Allergies Allergy/AdvReac Type Severity Reaction Status Date / Time No Known Drug Allergies Allergy Verified 11/25/16 16:13 - Social History Does the pt smoke?: No Smoking Status: Never smoker Does the pt drink ETOH?: No Does the pt have substance abuse?: No PD ED PE NORMAL - Vitals Vital signs reviewed: Yes - General General: Alert and oriented X 3, No acute distress - HEENT HEENT: Atraumatic, PERRL, Pharynx benign - Neck Neck: Supple, no meningeal sign, No bony TTP - Cardiac Cardiac: RRR, No murmur, No gallop, No rub - Respiratory Respiratory: No respiratory distress, Clear bilaterally - Abdomen Abdomen: Normal bowel sounds, Soft, Non tender, Non distended - Derm Derm: Normal color - Extremities Extremities: No deformity, No tenderness to palpate, Normal ROM s pain - Neuro Neuro: Alert and oriented X 3, 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, No motor deficit, No sensory deficit Results - Vitals Vitals: Vital Signs - 24 hr 12/24/16 12/24/16 10:52 13:23 Temperature 36.5 C Heart Rate 88 65 Respiratory 22 11 L Rate Blood Pressure 134/83 H 123/73 O2 Saturation 98 97 Oxygen O2 Source Room air - Labs Labs: Laboratory Tests 12/24/16 12/24/16 12/24/16 11:30 11:30 11:30 WBC 6.2 RBC 4.99 Hgb 14.1 Hct 42.0 MCV 84.0 MCH 28.2 MCHC 33.6 RDW 13.7 Plt Count 209 MPV 9.2 Neut # 4.0 Lymph # 1.3 L [place] # 0.7 Eos # 0.1 Baso # 0.0 Absolute Nucleated RBC 0.00 Nucleated RBCs 0.0 Sodium 136 Potassium 3.3 L Chloride 105 Carbon Dioxide 22 Anion Gap 9.0 BUN 20 Creatinine 0.7 Estimated GFR (MDRD) 114 Glucose 102 H Calcium 9.2 Total Bilirubin 0.9 AST 39 ALT 46 Alkaline Phosphatase 54 Troponin I < 0.04 Total Protein 7.0 Albumin 3.8 Globulin 3.2 Albumin/Globulin Ratio 1.2 Lipase 38 PD MEDICAL DECISION MAKING - ED course Complexity details: reviewed old records, reviewed results, re-evaluated patient , considered differential, d/w patient ED course: Patient is a pleasant 61-year-old man with a chief a history of diabetes diagnosed relatively recently who is now being cared for. The patient is been very good about controlling his blood sugars he says and has near normal hemoglobin A1c's. He has lost weight, exercises daily and takes his medications as prescribed. He is also adherent to a low carbohydrate diet. The patient is here as directed because he had a abnormal blood test. He had a CK-MB test done very recently that was elevated at 14.3. He is sent in here to rule out any type of cardiac abnormalities. The patient is completely asymptomatic and has no cardiac complaints. On examination he is a normal cardiac, pulmonary, and gastrointestinal exam. A chest x-ray shows no acute intrathoracic disease. EKG shows sinus rhythm 82 bpm the QR GA, QRS, QT intervals are all normal. There is no ST elevation, depression or T-wave inversion. There is voltage criteria consistent with LVH. Blood work on this patient is unremarkable. The patient's troponin is normal. The sensitivity of the troponin is significantly greater than cardiac isoenzymes and therefore CK-MB was not done. Overall this patient has no cardiac complaints, no cardiac history, no cardiac findings at this time other than LVH. I think he is low risk for ACS and can follow-up with his primary care physician . and undergo routine surveillance for CAD. Disposition: To home Clinical impression: 1. Normal examination and troponin-lower risk for ACS despite elevated CK-MB for Departure - Departure Disposition: 01 Home, Self Care Clinical Impression: Abnormal laboratory test result Condition: Good Follow-Up: AGNIESZKA HAWK [Physician No Access] - Comments: Your cardiovascular workup today clinically, radiographically, EKG, and cardiac labs are all normal
[2016-12-24 14:10] LABS: BILIRUBIN,URINE NEGATIVE (NEGATIVE); PH,URINE 5.5 PH (5.0-7.5)
[2016-12-24 14:12] LABS: UA w/ MICROSCOPIC CHARGE YES
[2016-12-24 14:16] LABS: UR CULTURE IF IND NOT INDICATED; WBC,URINE 0-3 /HPF (0-3)
== END 2016-12-24 13:58 | disposition home or self-care (01) ==
LOC: ED 10:48
DX: R79.89 Other specified abnormal findings of blood chemistry (principal); E11.9 Type 2 diabetes mellitus without complications; I10 Essential (primary) hypertension; J45.909 Unspecified asthma, uncomplicated; Z79.4 Long term (current) use of insulin
CPT/HCPCS: 36415; 71010; 80053; 81001; 81003; 83690; 84484; 85025; 87086; 93005; 99284; 99285